=== PATIENT | male | born 1955 | race Caucasian/White ===

== ENCOUNTER 2024-10-11 09:20 | Outpatient (CLI) | payer MEDICARE ==
[~2024-10-11 09:20] MED LIST: Iopamidol 370 76% 100 ML VIAL ONE
== END 2024-10-11 09:21 | disposition home or self-care (01) ==
LOC: CSHCT 09:20
PROVIDERS: ATTEND Nurse Practitioner Family
DX: R93.89 Abnormal findings on diagnostic imaging of other specified body structures (principal)
CPT/HCPCS: 70498; Q9967